=== PATIENT | female | born 1995 | race Caucasian/White ===

== ENCOUNTER → 2016-10-07 | Outpatient (CLI) | payer MEDICAID | END | disposition home or self-care (01) | LOC: RAD.S 15:48 | DX: R10.11 Right upper quadrant pain (principal); N20.0 Calculus of kidney ==

== ENCOUNTER 2016-12-10 07:30 | Emergency (ER) | payer MEDICAID ==
--- NOTE | 2016-12-12 16:28 | ER ---
ADMIT: 12/10/2016 RM/LOC: ER [facility] MR#: [id number] [id number] [address], [place] [address] Emergency Room Report SEX: F AGE: 21 : 1995 DATE: 12/10/2016 ADDENDUM: A 21-year-old female comes in with some right-sided flank pain and burning with urination. While in the ER, we did check urinalysis, which showed 3+ leukocyte esterase, otherwise is unremarkable. I checked CBC and CMP other than some mild anemia. They were also unremarkable. Chest x-ray showed no acute findings in her right base. She is diagnosed with urinary tract infection to use Bactrim b.i.d. for the next 3 days and follow up with Dr. Mcguire if not improving. She can return to the ER for any other concerning or emergent symptoms. Chaz Castellano MD/ taina JOB #: [id number] CC: Chaz Castellano MD, Attending Physician Mateus Mcguire MD, Family Physician
== END 2016-12-10 09:45 | disposition home or self-care (01) ==
LOC: ER 07:30
DX: N39.0 Urinary tract infection, site not specified (principal); F41.9 Anxiety disorder, unspecified; Z86.19 Personal history of other infectious and parasitic diseases; Z79.899 Other long term (current) drug therapy